=== PATIENT | male | born 1990 | race African-American/Black ===

== ENCOUNTER 2021-08-14 09:14 | Emergency (ER) | payer MEDICAID ==
[~2021-08-14] VITALS: Ht 177.8 cm; Wt 80.0 kg
[2021-08-14] MEDS ORDERED: TETRACAINE 0.5% OPHTH DROPS 4ML LEFTEYE ONE (09:45)
[2021-08-14] MEDS ORDERED: FLUORESCEIN SODIUM 1MG/STRIP LEFTEYE ONE (09:45)
[2021-08-14] MEDS ORDERED: IBUPROFEN 400MG TABLET PO ONE (10:00)
[2021-08-14 10:10] VITALS: BP 136/70
[2021-08-14] MEDS ORDERED: SULF1TAB48 MT (10:47)
[2021-08-14] MEDS ORDERED: OFLO5DRO3 LEFTEYE (10:47)
[2021-08-14] MEDS ORDERED: IBUP-2028 MT (10:47)
== END 2021-08-14 11:22 | disposition home or self-care (01) ==
LOC: ER 09:14
DX: L03.114 Cellulitis of left upper limb (principal); H10.9 Unspecified conjunctivitis; Z86.59 Personal history of other mental and behavioral disorders; Z98.890 Other specified postprocedural states
CPT/HCPCS: 29125; 73100; 73130; 99284

== ENCOUNTER 2021-08-22 19:22 | Emergency (ER) | payer MEDICAID ==
[~2021-08-22] VITALS: Ht 170.2 cm; Wt 71.0 kg
[~2021-08-22 19:22] MED LIST: IBUP-2028 MT; OFLO5DRO3 LEFTEYE; SULF1TAB48 MT
[2021-08-22] MEDS: POLYMYXIN B SULFATE/TMP 10ML BOTTLE LEFTEYE SCH ×2 (20:00→21:30)
[2021-08-22] MEDS ORDERED: LEVETIRACETAM 1000MG PREMIX 100 ML IV ONE (20:00)
[2021-08-22 21:52] LABS: BASOPHILS % 0.8 % (0.0-2.0); EOSINOPHILS % 0.3 % (0.0-5.0); HEMOGLOBIN. 14.1 g/dL (14.0-18.0); LYMPHOCYTES % 20.7 % (20.0-50.0); MEAN CORPUSCULAR HEMOGLOBIN 28.4 pg (28.0-32.0); MEAN CORPUSCULAR VOLUME 86.3 fL (80.0-94.0); MEAN PLATELET VOLUME 8.5 fl (7.4-10.4); MONOCYTES % 5.2 % (2.0-8.0); PLATELET 228 x1000/uL (130-400); RED BLOOD CELL COUNT 4.99 mill/uL (4.7-6.1); RED CELL DISTRIBUTION WIDTH 13.9 % (11.6-14.6)
[2021-08-22 21:58] LABS: CHLORIDE 115 mEq/L (98-107)
[2021-08-22 22:52] VITALS: BP 132/84
[2021-08-22] MEDS ORDERED: KEPP500 MT (23:13)
== END 2021-08-22 23:23 | disposition home or self-care (01) ==
LOC: ER 19:22
DX: G40.909 Epilepsy, unspecified, not intractable, without status epilepticus (principal); F20.9 Schizophrenia, unspecified; F17.210 Nicotine dependence, cigarettes, uncomplicated
CPT/HCPCS: 36415; 80053; 82962; 85025; 93005; 96365; 99284; J1953